=== PATIENT | female | born 1975 | race American Indian/Alaskan Native ===

== ENCOUNTER 2017-01-20 10:13 | Outpatient (CLI) | payer OTHER ==
--- NOTE | 2017-01-20 14:51 | Mammography Report ---
BILATERAL DIGITAL SCREENING MAMMOGRAM with CAD: 01/20/17 CLINICAL: Routine screening. COMPARISON:None available. However, a prior mammogram was apparently done at [place], [place]. FINDINGS: The breasts are heterogeneously dense, which may obscure small masses. Bilateral asymmetries require comparison with the prior mammogram. IMPRESSION: Bilateral asymmetries requiring further evaluation. BI-RADS CATEGORY: 0 -- Additional Evaluation Required RECOMMENDATION: Comparison with a previous mammogram. We will attempt to obtain a prior mammogram from [place], [place]. If we do not obtain a prior mammogram for comparison within 30 days, a revised report will be issued recommending a recall for additional imaging. Please be advised that the patient should not schedule an appointment for return until adequate time (at least 2 weeks) has passed for us to obtain the prior mammogram. ACR BI-RADS MAMMOGRAPHIC CODES: 0 = Needs additional imaging evaluation; 1 = Negative; 2 = Benign; 3 = Probably benign; 4 = Suspicious; 5 = Malignant; 6 = Known biopsy-proven malignancy COMMENT: 1. Dense breast tissue, i.e., adenosis, fibrocystic changes, etc., may obscure an underlying neoplasm. 2. Approximately 10% of cancers are not detected with mammography. 3. A negative mammography report should not delay biopsy if a clinically suspicious mass is present. COMMENT: Patient follow-up letters are generated via our [employer] application.
== END 2017-01-20 10:14 | disposition home or self-care (01) ==
LOC: SPVWC 10:13
PROVIDERS: ATTEND Family Medicine
DX: Z12.31 Encounter for screening mammogram for malignant neoplasm of breast (principal)
CPT/HCPCS: 77067; G0202

== ENCOUNTER 2017-03-31 09:24 | Outpatient (CLI) | payer OTHER ==
--- NOTE | 2017-03-31 10:33 | Mammography Report ---
RIGHT DIGITAL DIAGNOSTIC MAMMOGRAM with CAD and RIGHT BREAST ULTRASOUND: 03/31/17 CLINICAL: Recall for asymmetries. COMPARISON:01/20/17screening FINDINGS: ML in spot compression MLO and CC views were performed. Satisfactory effacement of upper asymmetries on the MLO view. Partial effacement of an inner asymmetry on the CC view. Ultrasound of the the inner right breast was performed and demonstrated a solid heterogeneous hypoechoic mass at 1:30 o'clock 3 cm from the nipple. It measures 2.7 x 0.9 x 1.8 cm. According to the patient, this was identified on a prior ultrasound in [place] and at that time a followup was recommended. We recently received a prior mammogram for comparison and but I do not recall having an ultrasound to review or mention of a mass on the prior report. IMPRESSION: Probably benign 2.7 cm right breast mass at 1:30 o'clock. BI-RADS CATEGORY: 3-Probably Benign RECOMMENDATION: 6 month followup ultrasound to confirm stability in size. I discussed this with the patient and told her that a followup may be alleviated if we can confirm the same size documented on prior ultrasound. She is going to attempt to obtain a report from a prior ultrasound. ACR BI-RADS MAMMOGRAPHIC CODES: 0 = Needs additional imaging evaluation; 1 = Negative; 2 = Benign; 3 = Probably benign; 4 = Suspicious; 5 = Malignant; 6 = Known biopsy-proven malignancy COMMENT: 1. Dense breast tissue, i.e., adenosis, fibrocystic changes, etc., may obscure an underlying neoplasm. 2. Approximately 10% of cancers are not detected with mammography. 3. A negative mammography report should not delay biopsy if a clinically suspicious mass is present. COMMENT: Patient follow-up letters are generated via our [employer] application.
== END 2017-03-31 09:25 | disposition home or self-care (01) ==
LOC: SPVWC 09:24
PROVIDERS: ATTEND Family Medicine
DX: N64.89 Other specified disorders of breast (principal); N63 Unspecified lump in breast
CPT/HCPCS: 76642; G0206

== ENCOUNTER 2017-07-19 07:32 | Outpatient (CLI) | payer OTHER ==
--- NOTE | 2017-07-19 11:58 | Fluoroscopy Report ---
Hysterosalpingogram: Post Essure stent placements for evaluation of occlusion. The patient was placed in a lithotomy position. A speculum was successfully placed in the cervix cleansed with Betadine. A 5 Swedish catheter was placed into the endometrium and secured with an air-filled balloon. Water-soluble contrast was introduced under fluoroscopic observation. There was good filling of the uterus. No contrast identified in either fallopian tube. The stents appear to be in good positions bilaterally. Images of the uterus are generally unremarkable except for some air bubbles. No complications encountered. Impression: Grade 1 bilateral fallopian tube occlusions.
== END 2017-07-19 07:33 | disposition home or self-care (01) ==
LOC: FLUORO 07:32
PROVIDERS: ATTEND Obstetrics & Gynecology
DX: Z30.2 Encounter for sterilization (principal); Z30.09 Encounter for other general counseling and advice on contraception
CPT/HCPCS: 58340; 74740; Q9967